=== PATIENT | female | born 1995 | race Two or more races ===

== ENCOUNTER 2023-07-03 08:13 | Outpatient (CLI) | payer OTHER | END 2023-07-03 08:16 | disposition home or self-care (01) | LOC: PRENATAL 08:13 | PROVIDERS: ATTEND Obstetrics & Gynecology Maternal & Fetal Medicine | DX: O36.80X0 Pregnancy with inconclusive fetal viability, not applicable or unspecified (principal); Z36.82 Encounter for antenatal screening for nuchal translucency; Z3A.11 11 weeks gestation of pregnancy ==

== ENCOUNTER 2023-11-24 08:27 | Outpatient (CLI) | payer OTHER | END 2023-11-24 08:28 | disposition home or self-care (01) | LOC: PRENATAL 08:27 | PROVIDERS: ATTEND Obstetrics & Gynecology Maternal & Fetal Medicine | DX: O36.80X0 Pregnancy with inconclusive fetal viability, not applicable or unspecified (principal); Z36.82 Encounter for antenatal screening for nuchal translucency; O99.282 Endocrine, nutritional and metabolic diseases complicating pregnancy, second trimester; Z3A.14 14 weeks gestation of pregnancy ==

== ENCOUNTER 2023-12-27 09:43 | Outpatient (CLI) | payer OTHER ==
[2023-12-28] MEDS ORDERED: PRENATA CHEWAB1 EACH PO (00:45)
== END 2023-12-27 09:44 | disposition home or self-care (01) ==
LOC: PRENATAL 09:43
PROVIDERS: ATTEND Obstetrics & Gynecology Maternal & Fetal Medicine
DX: O26.849 Uterine size-date discrepancy, unspecified trimester (principal); O36.8199 Decreased fetal movements, unspecified trimester, other fetus; O24.419 Gestational diabetes mellitus in pregnancy, unspecified control; Z3A.36 36 weeks gestation of pregnancy

== ENCOUNTER 2023-12-28 00:31 | Inpatient (IN) | payer OTHER ==
[~2023-12-28] VITALS: Ht 152.4 cm; Wt 85.3 kg
[2023-12-28] VITALS: BP 134/71
[2023-12-28] MEDS ORDERED: RINGERS SOLUTION,LACTATED 1,000 ML IV SCH (00:45)
[2023-12-28] MEDS ORDERED: AMPICILLIN SODIUM 2,000 MG VIAL IV ONE (00:45)
[2023-12-28] MEDS ORDERED: PRENATA CHEWAB1 EACH PO (00:45)
[2023-12-28 00:51] LABS: PH,URINE 6.5 (5.0-8.0); URINE APPEARANCE Clear; URINE BILIRRUBIN Negative (NEGATIVE); URINE BLOOD Small; URINE COLOR Yellow; URINE KETONE Negative (NEGATIVE); URINE LEUKOCYTE Trace; URINE NITRATE Negative; URINE PROTEIN Negative (NEGATIVE); URINE UROBILINOGEN 0.2 E.U./dl
[2023-12-28 01:12] LABS: INR < 0.93; PARTIAL THROMBOPLASTIN TIME 27.5 SECONDS (22.0-34.0); PROTHROMBIN TIME 9.9 SECONDS (9.0-11.5)
[2023-12-28 01:43] LABS: HEMOGLOBIN 11.6 g/dL (12.0-15.00); MEAN CELL VOLUME 86.4 fL (80.00-100.00); MEAN CORPUSCULAR HEMOGLOBIN 28.6 pg (27.00-32.0); MEAN CORPUSCULAR HGB CONC 33.1 g/dl (32.0-36.0); PLATELET COUNT 176 K/uL (150-450); RED BLOOD COUNT 4.05 M/uL (4.00-6.00); RED CELL DISTRIBUTION WIDTH 15.7 % (11.5-14.5)
[2023-12-28 01:46] LABS: URINE GLUCOSE 100 MG/DL (NEGATIVE)
[2023-12-28 02:04] LABS: ALBUMIN 2.4 gm/dL (3.4-5.0); BILIRUBIN TOTAL 0.14 mg/dL (0.3-1.2); CALCIUM 8.9 mg/dL (8.5-10.1); CREATININE SERUM 0.57 mg/dL (0.55-1.02); GFR 125.4; GLOBULINA 3.4 G/DL (2.4-3.5); POTASSIUM 3.96 mEq/L (3.5-5.1); TOTAL PROTEIN 5.8 gm/dL (6.4-8.2)
[2023-12-28 03:19] VITALS: BP 116/63
[2023-12-28] MEDS ORDERED: AMPICILLIN SODIUM 1,000 MG VIAL IV SCH (05:00)
[2023-12-28 07:23] VITALS: BP 109/54
[2023-12-28] MEDS ORDERED: MISOPROSTOL 25 MCG/4 ML GEL.W.APPL VAG ONE ×3 (08:45→17:30)
[2023-12-28 11:20] VITALS: BP 132/72
[2023-12-28] MEDS ORDERED: AMPICILLIN SODIUM 2,000 MG VIAL ONE (12:44)
[2023-12-28] MEDS ORDERED: LIDOCAINE HCL 1% 10ML VIAL ONE (18:23)
[2023-12-28] MEDS ORDERED: CARBOPROST TROMETHAMINE 250 MCG/ML AMPUL IM ONE (18:28)
[2023-12-28 20:46] VITALS: BP 116/60
[2023-12-28 23:09] VITALS: BP 130/71
[2023-12-29 03:18] VITALS: BP 124/68
[2023-12-29 07:43] VITALS: BP 132/72
[2023-12-29] MEDS ORDERED: OXYTOCIN 500 ML IV SCH (08:45)
[2023-12-29 11:10] VITALS: BP 112/52
[2023-12-29 11:24] VITALS: BP 134/64
[2023-12-29 15:23] VITALS: BP 117/54
[2023-12-29] MEDS ORDERED: PROMETHAZINE HCL 25 MG/ML AMPUL ONE (17:06)
[2023-12-29] MEDS ORDERED: MEPERIDINE HCL/PF 50 MG/ML VIAL IV ONE (17:15)
[2023-12-29] MEDS ORDERED: PROMETHAZINE HCL 25 MG/ML AMPUL IV ONE (17:15)
[2023-12-29] MEDS ORDERED: CEFAZOLIN SODIUM 1,000 MG VIAL ONE (18:54)
[2023-12-29] MEDS ORDERED: OXYTOCIN 10 UNITS/ML VIAL ONE (18:54)
[2023-12-29] MEDS ORDERED: ERYTHROMYCIN BASE 1 GM TUBE OP ONE (18:54)
[2023-12-29] MEDS ORDERED: KETOROLAC TROMETHAMINE 60 MG VIAL IM ONE (21:15)
[2023-12-29] MEDS ORDERED: AMPICILLIN SODIUM 1,000 MG VIAL ONE (21:59)
[2023-12-29 22:35] VITALS: BP 147/72
[2023-12-30 01:09] VITALS: BP 120/74
[2023-12-30 03:14] LABS: HEMATOCRIT 33.2 % (36.0-45.00); HEMOGLOBIN 11.1 g/dL (12.0-15.00); MEAN CELL VOLUME 87.1 fL (80.00-100.00); MEAN CORPUSCULAR HEMOGLOBIN 29.2 pg (27.00-32.0); MEAN CORPUSCULAR HGB CONC 33.5 g/dl (32.0-36.0); PLATELET COUNT 153 K/uL (150-450); RED BLOOD COUNT 3.82 M/uL (4.00-6.00); RED CELL DISTRIBUTION WIDTH 15.8 % (11.5-14.5)
[2023-12-30] MEDS ORDERED: OxyCODONE HCL/APAP UD (PERCOCET) PO SCH ×2 (07:00→12:00)
[2023-12-30 09:00] VITALS: BP 123/79
[2023-12-30] MEDS ORDERED: SIMETHICONE 125 MG CAPSULE PO SCH (09:00)
[2023-12-30] MEDS ORDERED: DOCUSATE CALCIUM 240 MG CAPSULE PO SCH (09:00)
[2023-12-30] MEDS ORDERED: MEPERIDINE HCL/PF 50 MG/ML VIAL IV SCH (12:00)
[2023-12-30 16:00] VITALS: BP 110/73
[2023-12-31] VITALS: BP 121/79
[2023-12-31 08:31] VITALS: BP 122/80
[2023-12-31] MEDS ORDERED: OxyCODONE HCL/APAP UD (PERCOCET) PO PRN (14:30)
[2023-12-31 16:00] VITALS: BP 105/67
[2023-12-31 20:00] VITALS: BP 114/75; BP 115/77
[2024-01-01] VITALS: BP 124/79
[2024-01-01 09:05] VITALS: BP 110/72
[2024-01-01] MEDS ORDERED: SURFAK240 M1 PO (10:37)
[2024-01-01] MEDS ORDERED: IBU800 MG PO (10:37)
== END 2024-01-01 12:24 | disposition home or self-care (01) | DRG 786 ==
LOC: LDR → OB/GYN 00:31 → O/R 12-29 20:23 → OB/GYN 12-29 21:22
PROVIDERS: Specialist; ADMIT Obstetrics & Gynecology; ATTEND Obstetrics & Gynecology
PROC: 3E0P7VZ Introduction of Hormone into Female Reproductive, Via Natural or Artificial Opening (ICD-10-PCS; 2023-12-28)
PROC: 4A1HXCZ Monitoring of Products of Conception, Cardiac Rate, External Approach (ICD-10-PCS; 2023-12-28)
PROC: 3E033VJ Introduction of Other Hormone into Peripheral Vein, Percutaneous Approach (ICD-10-PCS; 2023-12-29)
PROC: 10D00Z1 Extraction of Products of Conception, Low, Open Approach (ICD-10-PCS; principal; 2023-12-29 18:55)
DX: O62.1 Secondary uterine inertia (principal); O60.14X0 Preterm labor third trimester with preterm delivery third trimester, not applicable or unspecified; O42.013 Preterm premature rupture of membranes, onset of labor within 24 hours of rupture, third trimester; Z3A.36 36 weeks gestation of pregnancy; Z37.0 Single live birth; Z20.822 Contact with and (suspected) exposure to COVID-19